=== PATIENT | female | born 1960 | race Caucasian/White ===

== ENCOUNTER → 2017-12-27 | Day surgery (SDC) | payer OTHER ==
--- NOTE | 2017-12-28 14:07 | PATH ---
Cytology Non-Gynecological Report Patient Name: FELICITAS LUKE [facility]. Rec. #: [id number] /Age/Gender: 1960 (Age: 57) / F Account: [id number] Location: Taken: 12/27/2017 Received: 12/27/2017 Reported: 12/28/2017 Physicians: Ines Aragon M.D. Specimen(s) Received THYROID FNA Clinical History Left thyroid nodule 1.1 x 1.07 x 0.86 cm Final Diagnosis THYROID, LEFT, FINE NEEDLE ASPIRATION: SATISFACTORY FOR EVALUATION. BETHESDA CLASS II: BENIGN. CYTOLOGIC FINDINGS ARE CONSISTENT WITH A BENIGN FOLLICULAR NODULE. SMALL FOLLICULAR CELLS, RARE MULTINUCLEATED GIANT CELLS, FEW LYMPHOCYTES AND SCANT COLLOID PRESENT. Electronically Signed Karissa Tiwari M.D. Gross Description Received are eight direct smears, four of which are air-dried and Diff-Quik stained, and four of which are alcohol fixed and Pap stained. Also received is 20 ml of bloody formalin from which one cellblock is prepared.
== END | disposition home or self-care (01) ==
LOC: JRADIR 08:58
PROVIDERS: ATTEND Internal Medicine Endocrinology, Diabetes & Metabolism
PROC: 0G9G3ZX Drainage of Left Thyroid Gland Lobe, Percutaneous Approach, Diagnostic (ICD-10-PCS; principal; 2017-12-27)
DX: E04.1 Nontoxic single thyroid nodule (principal)
CPT/HCPCS: 10022; 60100; 76942-TC; 88173; 88305-TC

== ENCOUNTER 2018-06-15 10:03 | Emergency (ER) | payer OTHER ==
[2018-06-15 10:10] VITALS: BP 152/83; PULSE 81; TEMP 98.3; BMI 25.7
[2018-06-15] MEDS ORDERED: guaiFENesin/CODEINE 10 ML UNIT-DOSE CUPS PO ONE (10:53)
[2018-06-15] MEDS ORDERED: guaiFENesin/CODEINE 5 ML UNIT-DOSE CUPS PO ONE (11:01)
--- NOTE | 2018-06-15 11:25 | PDOC ---
History of Present Illness - General Chief Complaint: Cold Symptoms Stated Complaint: VOMITING/HEADACHE Time Seen by Provider: 06/15/18 10:47 History Source: Patient Exam Limitations: No Limitations - History of Present Illness Initial Comments: 06/15/18 11:31 58-year-old female presents the emergency room with complaints of cough for the past 3 months without fever, chills but complains of bilateral rib soreness causing her difficulty sleeping with extreme coughing sugary nausea without vomiting. Patient denies headache presently but states has had one intermittently at night for the past 2 months. Patient states approximately one month ago had went to her primary care doctor and was given steroids along with 5 days of antibiotics but did not have a chest x-ray or labs done at the time. Patient is currently on lisinopril for hypertension. Patient denies calf pain, shortness of breath, wheezing smoking history, recent travel recent surgery. Timing/Duration: reports: other Severity: reports: mild Possible Cause: Yes: occasional episodes Modifying Factors: improves with: coughing Associated Symptoms: reports: chest pain/soreness (SORENESS), cough, muscle aches. denies: sore throat, wheezing Past History - Travel Traveled outside of the country in the last 30 days: No - Past Medical History Allergies/Adverse Reactions: Allergies Allergy/AdvReac Type Severity Reaction Status Date / Time No Known Allergies Allergy Verified 06/15/18 10:10 Home Medications: Ambulatory Orders Labetalol HCl [Normodyne -] 200 mg PO DAILY 12/16/15 Lisinopril [Prinivil -] 40 mg PO DAILY 12/16/15 Nifedipine [Nifedipine Xl] 60 mg PO DAILY 12/16/15 metFORMIN HCL [Metformin HCl] 500 mg PO BID 12/16/15 COPD: No Diabetes: Yes HTN: Yes Hypercholesterolemia: Yes - Surgical History Abdominal Surgery: Yes (Chris Hardin) - Suicide/Smoking/Psychosocial Hx Smoking History: Never smoked Hx Alcohol Use: No Drug/Substance Use Hx: No Substance Use Type: None Patient Lives Alone: No Lives with/in: spouse/SO Respiratory Specific PMHX - Complaint Specific PMHX Bronchitis: No Review of Systems - Review of Systems Able to Perform ROS?: No Constitutional: No: Symptoms Reported HEENTM: No: Symptoms Reported Respiratory: Yes: Cough. No: Shortness of Breath, Wheezing Cardiac (ROS): Yes: Other (RIB SORENESS) ABD/GI: No: Symptoms Reported : No: Symptoms Reported Musculoskeletal: Yes: Muscle Pain Integumentary: No: Symptoms Reported Neurological: No: Symptoms reported Hematologic/Lymphatic: No: Symptoms Reported *Physical Exam - Vital Signs Last Vital Signs Temp Pulse Resp BP Pulse Ox 98.3 F 81 16 152/83 99 06/15/18 10:06 06/15/18 10:06 06/15/18 10:06 06/15/18 10:06 06/15/18 11:09 - Physical Exam General Appearance: Yes: Nourished, Appropriately Dressed. No: Apparent Distress HEENT: positive: EOMI, SONAM, TMs Normal, Pharynx Normal. negative: Pale Conjunctivae Neck: positive: Normal Thyroid, Supple Respiratory/Chest: positive: Chest Tender (BILATERAL LOWER ribs near axillary region and posteriorly), Lungs Clear, Normal Breath Sounds. negative: Respiratory Distress, Accessory Muscle Use Cardiovascular: positive: Regular Rhythm, Regular Rate. negative: Murmur Gastrointestinal/Abdominal: positive: Soft. negative: Tenderness Integumentary: positive: Normal Color, Warm, Moist. negative: Rash Neurologic: positive: Motor Strength 5/5 (ambulatory) ED Treatment Course - LABORATORY CBC & Chemistry Diagram: 06/15/18 11:36 06/15/18 11:36 - RADIOLOGY Radiology Studies Ordered: Category Date Time Status CHEST PA & LAT [RAD] Stat Radiology 06/15/18 10:48 Ordered - Medications Given in the ED: ED Medications Discontinued Medications Generic Name Dose Route Start Last Admin Trade Name Freq PRN Reason Stop Dose Admin Guaifenesin/Codeine Phosphate 10 ml 06/15/18 10:53 06/15/18 11:00 Robitussin Ac - PO 06/15/18 10:54 10 ml ONCE ONE Administration Medical Decision Making - Medical Decision Making 06/15/18 11:31 Patient with dry hacking cough the past few months worsened in the p.m. hours. Patient states has not taken anything for the above except for antibiotics and prednisone which was prescribed 1 month ago by her primary care physician. Patient exam had no acute findings. Patient concerning for walking pneumonia versus bronchospasm secondary to Norm inhibitors. Patient ordered for labs, chest x-ray along with Robitussin-AC. 06/15/18 12:33 Laboratory Tests 06/15/18 06/15/18 11:36 11:36 WBC 4.0 Hgb 13.1 Hct 38.7 RDW 13.5 Neutrophils % 53.2 Sodium 140 Potassium 4.3 Chloride 104 Carbon Dioxide 27 Anion Gap 9 BUN 17 Creatinine 0.9 Random Glucose 152 H Calcium 9.3 Total Bilirubin 0.3 AST 14 L ALT 27 Chest x-ray shows no acute chest pathology. Patient states feeling better after receiving Robitussin-AC. Discharge home with the same but to use at hs since it contains sugar and may affect BP *DC/Admit/Observation/Transfer Diagnosis at time of Disposition: Cough - Discharge Dispostion Disposition: HOME Condition at time of disposition: Good - Referrals Referrals: Janell Sher MD [Primary Care Provider] - - Patient Instructions Printed Discharge Instructions: DI for Cough -- Adult Additional Instructions: Please take Robitussin as needed for cough trying to reserve it for nighttime only since it may elevate your glucose and blood pressure. Please also notify your primary care doctor of today's visit and discussed the possibility of Norm inhibitor induced cough - Post Discharge Activity
[2018-06-15 11:43] LABS: BASO % 0.8 % (0-2.0); EOS % 2.5 % (0-4.5); HEMATOCRIT 38.7 % (32.4-45.2); HEMOGLOBIN 13.1 GM/dL (10.7-15.3); LYMPH % 36.2 % (8-40); MCH 29.3 pg (25.7-33.7); MCHC 33.7 g/dl (32.0-36.0); MEAN CELL VOLUME 86.8 fl (80-96); MEAN PLT VOLUME 8.5 fl (7.5-11.1); MONO % 7.3 % (3.8-10.2); NEUT % 53.2 % (42.8-82.8); PLATELET COUNT 261 K/MM3 (134-434); RBC 4.46 M/mm3 (3.60-5.2); RDW 13.5 % (11.6-15.6)
[2018-06-15 12:11] LABS: ALBUMIN 4.2 g/dl (3.4-5.0); ALK PHOS 94 U/L (45-117); ANION GAP 9 MMOL/L (8-16); BILIRUBIN,TOTAL 0.3 mg/dL (0.2-1.0); BLOOD UREA NITROGEN 17 mg/dL (7-18); CALCIUM 9.3 mg/dL (8.5-10.1); CHLORIDE 104 mmol/L (98-107); CO2 27 mmol/L (21-32); CREATININE 0.9 mg/dL (0.55-1.02); GLUCOSE,RANDOM 152 mg/dL (74-106); POTASSIUM 4.3 mmol/L (3.5-5.1); SGOT/AST 14 U/L (15-37); SGPT/ALT 27 U/L (12-78); SODIUM 140 mmol/L (136-145); TOT PROT 7.9 g/dl (6.4-8.2)
== END 2018-06-15 12:52 | disposition home or self-care (01) ==
LOC: JER 10:03
DX: R05 Cough (principal); I10 Essential (primary) hypertension; E78.00 Pure hypercholesterolemia, unspecified; E11.9 Type 2 diabetes mellitus without complications; Z79.84 Long term (current) use of oral hypoglycemic drugs
CPT/HCPCS: 36415; 71046-TC-FY; 80053; 85025; 99282-25

== ENCOUNTER 2019-07-13 10:55 | Emergency (ER) | payer OTHER ==
[2019-07-13 11:04] VITALS: BMI 25.0
[2019-07-13 11:56] LABS: EPI CELLS 4.8 /HPF (0-5/HPF); HYALINE CASTS 18 /lpf (0-8); URINE APPEARANCE CLOUDY; URINE BACTERIA 2.7 /hpf (NEGATIVE); URINE BILIRUBIN NEGATIVE (NEGATIVE); URINE COLOR DK YELLOW; URINE GLUCOSE (UA) NEGATIVE (NEGATIVE); URINE KETONE TRACE (NEGATIVE); URINE LEUK ESTERASE NEGATIVE (NEGATIVE); URINE NITRITE NEGATIVE (NEGATIVE); URINE PROTEIN TRACE (NEGATIVE); URINE RBC 33 /hpf (0-4); URINE UROBILINOGEN 0.2 mg/dL (0.2-1.0); URINE WBC 1 /hpf (0-5)
--- NOTE | 2019-07-13 12:21 | PDOC ---
Attending Attestation - Resident Resident Name: BelkysTavares - ED Attending Attestation I have performed the following: I have examined & evaluated the patient, The case was reviewed & discussed with the resident, I agree w/resident's findings & plan, Exceptions are as noted - HPI HPI: 59 yo F history HTN, HL, renal cyst, DM presents with 1 month history of hematuria, intermittent. She c/o suprapubic abd pain with low back pain. Denies f/c, dysuria, foul odor. She states her primary is Dr. Ulloa, but it was recently switched to a new doctor who does not know about the present complaint. - Physicial Exam PE: GENERAL: Awake, alert, and fully oriented, in no acute distress HEAD: No signs of trauma EYES: PERRLA, EOMI, sclera anicteric, conjunctiva clear ENT: Auricles normal inspection, hearing grossly normal, nares patent, oropharynx clear without exudates. Moist mucosa NECK: Normal ROM, supple, no lymphadenopathy, JVD, or masses LUNGS: Breath sounds equal, clear to auscultation bilaterally. No wheezes, and no crackles HEART: Regular rate and rhythm, normal S1 and S2, no murmurs, rubs or gallops ABDOMEN: Soft, +suprapubic tenderness, normoactive bowel sounds. No guarding, no rebound. No masses EXTREMITIES: Normal range of motion, no edema. No clubbing or cyanosis. No cords, erythema, or tenderness NEUROLOGICAL: Cranial nerves II through XII grossly intact. Normal speech, normal gait. Motor and sensation intact SKIN: Warm, dry, normal turgor, no rashes or lesions noted. SPINE: +B/L lumbar paraspinal soft tissue tenderness - Medical Decision Making Pt with hematuria, likely due to renal cyst. However, it also may be due to UTI , nephrolithiasis. Will check UA, labs, spiral CT.
--- NOTE | 2019-07-13 12:24 | PDOC ---
History of Present Illness - General Chief Complaint: Urinary Problem Stated Complaint: BLOOD IN URINE Time Seen by Provider: 07/13/19 11:55 History Source: Patient Exam Limitations: No Limitations - History of Present Illness Initial Comments: 07/13/19 12:18 59 yo female [facility] HTN, HLD, renal cyst (followed by nephro, last seen 6 months ago states normal) DM presents to the ED with 1 month of blood in her urine intermittently and suprapubic abdominal pain with bilateral lower back pain and intermittent diarrhea. Pt states the blood and pain started 1 month ago , never had these symptoms in the past, denies hx of UTI or renal stones. Pain is suprapubic with back Pt denies F/C/N/V, upper abdominal pain, CP, SOB. Past History - Past Medical History Allergies/Adverse Reactions: Allergies Allergy/AdvReac Type Severity Reaction Status Date / Time No Known Allergies Allergy Verified 07/13/19 11:04 Home Medications: Ambulatory Orders Labetalol HCl [Normodyne -] 100 mg PO DAILY 12/16/15 Nifedipine [Nifedipine Xl] 60 mg PO DAILY 12/16/15 metFORMIN HCL [Metformin HCl] 850 mg PO BID 12/16/15 Aspirin [ASA -] 81 mg PO DAILY 07/13/19 Nifedipine [Nifedipine ER] 60 mg PO DAILY 07/13/19 COPD: No Diabetes: Yes HTN: Yes Hypercholesterolemia: Yes - Surgical History Abdominal Surgery: Yes (Tummy Tuck) - Suicide/Smoking/Psychosocial Hx Smoking History: Never smoked Hx Alcohol Use: No Drug/Substance Use Hx: No Substance Use Type: None Review of Systems - Review of Systems Constitutional: No: Chills, Fever HEENTM: No: Blurred Vision, Double Vision Respiratory: No: Shortness of Breath Cardiac (ROS): No: Chest Pain ABD/GI: No: Constipated, Diarrhea, Nausea, Vomiting : Yes: Hematuria, Other (suprapubic ). No: Burning, Dysuria, Flank Pain Musculoskeletal: Yes: Back Pain (lower bilaterally) Integumentary: No: Pallor, Rash Neurological: No: Headache, Numbness, Paresthesia, Weakness *Physical Exam - Vital Signs Last Vital Signs Temp Pulse Resp BP Pulse Ox 98.2 F 67 18 155/75 99 07/13/19 11:02 07/13/19 11:02 07/13/19 11:02 07/13/19 11:02 07/13/19 11:02 - Physical Exam General Appearance: Yes: Nourished, Appropriately Dressed. No: Apparent Distress HEENT: positive: EOMI Neck: positive: Supple. negative: Carotid bruit Respiratory/Chest: positive: Lungs Clear, Normal Breath Sounds. negative: Accessory Muscle Use, Crackles, Rales, Rhonchi, Stridor, Wheezing Cardiovascular: positive: Regular Rhythm, Regular Rate, S1, S2. negative: Edema , JVD, Murmur Vascular Pulses: Dorsalis-Pedis (R): 4+, Doralis-Pedis (L): 4+ Gastrointestinal/Abdominal: positive: Flat, Soft, Tenderness (suprapubic mild). negative: Pulsatile Mass, Protuberent, Distended, Guarding Musculoskeletal: negative: CVA Tenderness Extremity: positive: Normal Capillary Refill, Normal Inspection, Normal Range of Motion Integumentary: positive: Normal Color, Dry, Warm Neurologic: positive: Fully Oriented, Alert, Normal Mood/Affect, Normal Response ED Treatment Course - LABORATORY CBC & Chemistry Diagram: 07/13/19 12:55 07/13/19 12:55 - ADDITIONAL ORDERS Additional order review: Laboratory Results 07/13/19 11:45 Urine Color Dk yellow Urine Appearance Cloudy Urine pH 5.0 Ur Specific [place] 1.028 Urine Protein Trace Urine Glucose (UA) Negative Urine Ketones Trace H Urine Blood 2+ H Urine Nitrite Negative Urine Bilirubin Negative Urine Urobilinogen 0.2 Ur Leukocyte Esterase Negative Urine WBC (Auto) 1 Urine RBC (Auto) 33 Urine Casts (Auto) 18 U Pathogenic Cast Auto None seen U Epithel Cells (Auto) 4.8 Urine Bacteria (Auto) 2.7 Medical Decision Making - Medical Decision Making 07/13/19 16:08 59 yo [place] [facility] [place] HTN, HLD, renal cyst (followed by nephro, last seen 6 months ago states normal) DM presents to the ED with 1 month of blood in her urine intermittently and suprapubic abdominal pain with bilateral lower back pain and intermittent diarrhea. Pt states the blood and pain started 1 month ago , never had these symptoms in the past, denies hx of UTI or renal stones. Pain is suprapubic with back Pt denies F/C/N/V, upper abdominal pain, CP, SOB. vitals wnl blood in UA, will spiral CT to r/o stones Due to hx of renal cyst, will do basic labs to assess kidney function 07/13/19 16:[address] neg for stones Pt is safe for DC with Nephro f/u and PCP f/u *DC/Admit/Observation/Transfer Diagnosis at time of Disposition: Hematuria - Discharge Dispostion Disposition: HOME Condition at time of disposition: Stable Decision to Admit order: No - Referrals Referrals: Papito Bernard MD [Staff Physician] - - Patient Instructions Printed Discharge Instructions: DI for Hematuria Additional Instructions: Please make an appointment and see your Bat Person as soon as possible. See your Primary Doctor within the next 48 hours. return to the ER for new or concerning symptoms including but not limited to: lightheadedness, dizziness, weakness, inability to eat or drink, fevers, difficulty urinating. Thank you Print Language: WELSH - Post Discharge Activity
[2019-07-13 13:01] LABS: BASO % 0.7 % (0-2.0); EOS % 1.7 % (0-4.5); HEMATOCRIT 33.9 % (32.4-45.2); HEMOGLOBIN 11.6 GM/dL (10.7-15.3); LYMPH % 38.5 % (8-40); MCH 29.6 pg (25.7-33.7); MCHC 34.2 g/dl (32.0-36.0); MEAN CELL VOLUME 86.7 fl (80-96); MEAN PLT VOLUME 8.1 fl (7.5-11.1); MONO % 8.7 % (3.8-10.2); NEUT % 50.4 % (42.8-82.8); PLATELET COUNT 263 K/MM3 (134-434); RBC 3.91 M/mm3 (3.60-5.2); RDW 13.7 % (11.6-15.6)
[2019-07-13 13:41] LABS: BILIRUBIN,TOTAL 0.3 mg/dL (0.2-1); BLOOD UREA NITROGEN 19.9 mg/dL (7-18); CALCIUM 9.7 mg/dL (8.5-10.1); CREATININE 0.9 mg/dL (0.55-1.3); POTASSIUM 4.4 mmol/L (3.5-5.1); TOT PROT 7.1 g/dl (6.4-8.2)
[2019-07-13] MEDS ORDERED: LABETALOL HCL 100 MG TABLET (FP) PO ONE (16:33)
[2019-07-13] MEDS ORDERED: NIFEdipine E.R 60 MG TABLET (UD) PO ONE (16:33)
[2019-07-13] MEDS ORDERED: NIFEdipine E.R. 30 MG TABLET (FP) ONE (16:35)
[2019-07-13] MEDS ORDERED: LABETALOL HCL 100 MG TABLET (FP) ONE (16:35)
[2019-07-13 16:40] VITALS: BP 182/85; PULSE 68; TEMP 98.4
== END 2019-07-13 16:42 | disposition home or self-care (01) ==
LOC: JER 10:55
DX: R31.9 Hematuria, unspecified (principal); I10 Essential (primary) hypertension; E78.5 Hyperlipidemia, unspecified; E11.9 Type 2 diabetes mellitus without complications; Z79.84 Long term (current) use of oral hypoglycemic drugs; N28.1 Cyst of kidney, acquired
CPT/HCPCS: 36415; 74176-TC; 80053; 81003; 85025; 87086; 99283-25

== ENCOUNTER 2021-08-10 13:00 | Emergency (ER) | payer OTHER ==
[2021-08-10 13:25] VITALS: BP 148/62; PULSE 65; TEMP 97.9; BMI 22.8
[2021-08-10] MEDS ORDERED: predniSONE 20 MG TABLET (UD) PO ONE (14:47)
[2021-08-10] MEDS: ALBUTEROL SO4 2.5/IPRATROPIUM 0.5 INH SOL 3 ML VIAL.NEB. NEB SCH ×4 (16:00→16:45)
[2021-08-10] MEDS ORDERED: ALBUTEROL SO4 2.5/IPRATROPIUM 0.5 INH SOL 3 ML VIAL.NEB. NEB ONE (16:09)
[2021-08-10] MEDS ORDERED: predniSONE 20 MG TABLET (UD) ONE (16:10)
== END 2021-08-10 18:20 | disposition home or self-care (01) ==
LOC: JER 13:00
PROC: 3E0F7GC Introduction of Other Therapeutic Substance into Respiratory Tract, Via Natural or Artificial Opening (ICD-10-PCS; principal; 2021-08-10)
DX: J45.21 Mild intermittent asthma with (acute) exacerbation (principal)
CPT/HCPCS: 71046-TC-FY; 94640; 99284-25; C9803; U0003; U0005

== ENCOUNTER → 2022-09-27 | Day surgery (SDC) | payer OTHER | END | disposition home or self-care (01) | LOC: JRADUS-SUR 09:38 | PROVIDERS: ATTEND Midwife | PROC: 0H9T3ZX Drainage of Right Breast, Percutaneous Approach, Diagnostic (ICD-10-PCS; principal; 2022-09-27) | DX: C50.911 Malignant neoplasm of unspecified site of right female breast (principal) | CPT/HCPCS: 19083; 77065-TC; 87899; 88305-TC; 88341-TC; 88342-TC; A4648 ==

== ENCOUNTER → 2022-10-26 | Day surgery (SDC) | payer OTHER | END | disposition home or self-care (01) | LOC: FRADUS-SUR 13:15 | PROVIDERS: ATTEND Registered Nurse | PROC: 0HBT3ZX Excision of Right Breast, Percutaneous Approach, Diagnostic (ICD-10-PCS; principal; 2022-10-26) | DX: D24.1 Benign neoplasm of right breast (principal); C50.911 Malignant neoplasm of unspecified site of right female breast; N60.22 Fibroadenosis of left breast | CPT/HCPCS: 19085; 77065-TC; 88305-TC; 88342-TC; A4648; A9579; C1887 ==

== ENCOUNTER → 2022-11-10 | Day surgery (SDC) | payer OTHER | END | disposition home or self-care (01) | LOC: JMAMMOTONE 09:20 | PROVIDERS: ATTEND Surgery Surgical Oncology | PROC: BH3 Imaging, Skin, Subcutaneous Tissue and Breast, Magnetic Resonance Imaging (MRI) (ICD-10-PCS; principal; 2022-11-10) | DX: C50.911 Malignant neoplasm of unspecified site of right female breast (principal) | CPT/HCPCS: 19281; A4648 ==

== ENCOUNTER 2022-11-15 04:23 | Day surgery (SDC) | payer OTHER ==
[2022-11-13 14:41] VITALS: BMI 24.4
[2022-11-15] MEDS ORDERED: BUPIVACAINE HCL/PF 0.5% (5MG/ML) 10 ML VIAL ONE (08:49)
[2022-11-15] MEDS ORDERED: BENZOIN/ALOE VERA/STORAX/TOLU 58 ML BOTTLE ONE (08:49)
[2022-11-15] MEDS ORDERED: ONDANSETRON 4 MG/2 ML VIAL IVPUSH PRN (08:50)
[2022-11-15] MEDS ORDERED: oxyCODONE HCL 5 MG TABLET PO PRN (08:50)
[2022-11-15] MEDS ORDERED: PROMETHAZINE HCL 25 MG/1 ML VIAL IVPUSH PRN (08:50)
[2022-11-15] MEDS ORDERED: LACTATED RINGERS SOLUTION 1,000 ML IV SCH (09:00)
[2022-11-15] MEDS ORDERED: MIDAZOLAM HCL 2 MG/2 ML SINGLE DOSE VIAL ONE (09:09)
[2022-11-15] MEDS ORDERED: SODIUM CHLORIDE 0.9% P/F 10 ML VIAL IJ ONE (09:09)
[2022-11-15] MEDS ORDERED: GLYCOPYRROLATE 0.2 MG/1 ML VIAL ONE (09:09)
[2022-11-15] MEDS ORDERED: LIDOCAINE HCL/PF 2% SDV 5ML VIAL ONE (09:09)
[2022-11-15] MEDS ORDERED: ceFAZolin SODIUM 1 GM VIAL ONE (09:09)
[2022-11-15] MEDS ORDERED: PROPOFOL 20 ML ONE (09:09)
[2022-11-15] MEDS ORDERED: ceFAZolin SODIUM 1 GM VIAL IVPB ONE (09:20)
[2022-11-15] MEDS ORDERED: ONDANSETRON 4 MG/2 ML VIAL ONE (09:25)
[2022-11-15] MEDS ORDERED: KETOROLAC TROMETHAMINE 30 MG/1 ML VIAL ONE (09:25)
[2022-11-15] MEDS ORDERED: DEXAMETHASONE SOD PHOSPHATE 4 MG/1 ML VIAL ONE (09:25)
[2022-11-15] MEDS ORDERED: BUPIVACAINE HCL/PF 0.5% (5 MG/ML) 30 ML VIAL IJ ONE ×2 (09:41→10:30)
[2022-11-15 12:19] VITALS: TEMP 97.2
[2022-11-15 13:15] VITALS: BP 156/73; PULSE 78; RESP 18
== END 2022-11-15 13:05 | disposition home or self-care (01) ==
LOC: JASU-SURG 04:23
PROVIDERS: ATTEND Surgery Surgical Oncology
PROC: C71L1ZZ Planar Nuclear Medicine Imaging of Upper Chest Lymphatics using Technetium 99m (Tc-99m) (ICD-10-PCS; 2022-11-15)
PROC: 0HBT0ZZ Excision of Right Breast, Open Approach (ICD-10-PCS; principal; 2022-11-15 09:00)
PROC: 07B50ZX Excision of Right Axillary Lymphatic, Open Approach, Diagnostic (ICD-10-PCS; 2022-11-15 09:00)
DX: C50.911 Malignant neoplasm of unspecified site of right female breast (principal)
CPT/HCPCS: 76098-TC-FY; 78195-TC; 82962; 88307-TC; 94760; A9541

== ENCOUNTER 2023-01-22 10:31 | Day surgery (SDC) | payer OTHER ==
[2023-01-22 09:48] LABS: HEMATOCRIT 36.1 % (32.4-45.2); HEMOGLOBIN 12.5 GM/dL (10.7-15.3); MCH 29.2 pg (25.7-33.7); MCHC 34.6 g/dl (32.0-36.0); MEAN CELL VOLUME 84.3 fl (80-96); MEAN PLT VOLUME 8.8 fl (7.5-11.1); PLATELET COUNT 272 10^3/uL (134-434); RBC 4.28 M/mm3 (3.60-5.2); RDW 14.2 % (11.6-15.6); WHITE BLOOD COUNT 9.2 K/mm3 (4.0-10.0)
[2023-01-22 10:05] LABS: ALBUMIN 4.2 g/dl (3.4-5.0); BLOOD UREA NITROGEN 28.8 mg/dL (7-18); CALCIUM 9.8 mg/dL (8.5-10.1)
[2023-01-22 10:08] LABS: BILIRUBIN,DIRECT 0.1 mg/dL (0.0-0.2)
[2023-01-22 10:09] LABS: CREATININE 0.9 mg/dL (0.55-1.3)
[2023-01-22 10:10] LABS: BILIRUBIN,TOTAL 0.3 mg/dL (0.2-1); TOT PROT 7.9 g/dl (6.4-8.2)
[~2023-01-22 10:31] MED LIST: DEXAMETHASONE SODIUM PHOSPHATE 10 MG in SODIUM CHLORIDE 50 ML IVPB ONE; DOCETAXEL 132 MG in SODIUM CHLORIDE 250 ML IV ONE; PALONOSETRON HCL 0.25 MG/5 ML VIAL IVPUSH ONE
[2023-01-22 10:51] LABS: ANISOCYTOSIS 0; HELMET CELLS 0; HOWELL-JOLLY BODIES 0; MACROCYTOSIS 0; OVALOCYTE 0; ROULEAU 0; SICKELED CELLS 0; TARGET CELLS 0; TEAR DROP CELLS 0; TOXIC GRANULATION 0
[2023-01-22] MEDS ORDERED: SODIUM CHLORIDE IVPB ONE (11:30)
[2023-01-22] MEDS ORDERED: CYCLOPHOSPHAMIDE IVPB ONE (11:30)
[2023-01-22 16:39] VITALS: BP 151/63; PULSE 67; RESP 20; TEMP 97.6
== END 2023-01-22 16:00 | disposition home or self-care (01) ==
LOC: JRADIR 10:31
PROVIDERS: ATTEND Internal Medicine Hematology & Oncology
PROC: 3E04305 Introduction of Other Antineoplastic into Central Vein, Percutaneous Approach (ICD-10-PCS; principal; 2023-01-22)
PROC: 02HV33Z Insertion of Infusion Device into Superior Vena Cava, Percutaneous Approach (ICD-10-PCS; 2023-01-22)
PROC: B548ZZA Ultrasonography of Superior Vena Cava, Guidance (ICD-10-PCS; 2023-01-22)
DX: Z51.11 Encounter for antineoplastic chemotherapy (principal); C50.919 Malignant neoplasm of unspecified site of unspecified female breast
CPT/HCPCS: 36415; 36569; 80048; 80076; 84703; 85027; J2469; J9070; J9171

== ENCOUNTER 2023-01-23 12:00 | Day surgery (SDC) | payer OTHER ==
[~2023-01-23 12:00] MED LIST changes: +CYCLOPHOSPHAMIDE IVPB ONE; +PEGFILGRASTIM-CBQV (UDENYCA) 6 MG/0.6 ML SYRINGE SQ ONE; +SODIUM CHLORIDE IVPB ONE
[2023-01-23 16:11] VITALS: BP 151/69; PULSE 74; RESP 19; TEMP 97.8
== END 2023-01-23 13:20 | disposition home or self-care (01) ==
LOC: JONCCHEMO 12:00
PROVIDERS: ATTEND Internal Medicine Hematology & Oncology
PROC: 3E013GC Introduction of Other Therapeutic Substance into Subcutaneous Tissue, Percutaneous Approach (ICD-10-PCS; principal; 2023-01-23)
DX: C50.911 Malignant neoplasm of unspecified site of right female breast (principal); Z76.89 Persons encountering health services in other specified circumstances
CPT/HCPCS: 96372; Q5111

== ENCOUNTER 2023-01-27 23:10 | Emergency (ER) | payer OTHER ==
[2023-01-27 23:18] VITALS: BMI 24.2
[2023-01-28 02:43] LABS: BASO % 0.5 % (0-2.0); EOS % 1.3 % (0-4.5); HEMATOCRIT 34.4 % (32.4-45.2); LYMPH % 24.5 % (8-40); MCH 29.5 pg (25.7-33.7); MCHC 34.8 g/dl (32.0-36.0); MEAN CELL VOLUME 84.7 fl (80-96); MEAN PLT VOLUME 8.8 fl (7.5-11.1); MONO % 8.1 % (3.8-10.2); NEUT % 65.6 % (42.8-82.8); PLATELET COUNT 185 10^3/uL (134-434); RBC 4.07 M/mm3 (3.60-5.2); RDW 14.3 % (11.6-15.6); WHITE BLOOD COUNT 8.4 K/mm3 (4.0-10.0)
[2023-01-28 02:46] LABS: EPI CELLS 11 /uL (0-25.1); HYALINE CASTS 1 /uL (0-3.1); URINE APPEARANCE CLEAR; URINE BACTERIA 20 /uL (0-1359); URINE BILIRUBIN NEGATIVE (NEGATIVE); URINE COLOR YELLOW; URINE GLUCOSE (UA) NEGATIVE (NEGATIVE); URINE KETONE NEGATIVE (NEGATIVE); URINE LEUK ESTERASE NEGATIVE (NEGATIVE); URINE NITRITE NEGATIVE (NEGATIVE); URINE PROTEIN 1+ (NEGATIVE); URINE RBC 18 /uL (0-23.9); URINE WBC 10 /uL (0-25.8)
[2023-01-28 02:49] LABS: INR 1.14 (0.83-1.09); PROTHROMBIN TIME (PATIENT) 13.2 SEC (9.7-13.0)
[2023-01-28] MEDS ORDERED: LIDOCAINE 5% TOPICAL PATCH TP ONE (03:20)
[2023-01-28] MEDS ORDERED: ACETAMINOPHEN 1000 MG/100 ML BAG IVPB ONE (03:21)
[2023-01-28 03:30] LABS: ALBUMIN 3.9 g/dl (3.4-5.0); BLOOD UREA NITROGEN 15.5 mg/dL (7-18)
[2023-01-28 03:33] LABS: CREATININE 0.8 mg/dL (0.55-1.3)
[2023-01-28 03:35] LABS: BILIRUBIN,TOTAL 0.5 mg/dL (0.2-1); TOT PROT 7.6 g/dl (6.4-8.2)
[2023-01-28] MEDS ORDERED: ACETAMINOPHEN INJECTION 100 ML IVPB ONE (03:41)
[2023-01-28] MEDS ORDERED: LIDOCAINE 5% TOPICAL PATCH ONE ×2 (03:42)
[2023-01-28] MEDS ORDERED: LACTULOSE 20 GM/30 ML UDC (FOR ORAL USE ONLY) PO ONE (03:52)
[2023-01-28 03:54] LABS: ANISOCYTOSIS 2+; MACROCYTOSIS 0; OVALOCYTE 2+; TEAR DROP CELLS 1+
[2023-01-28 03:55] LABS: TOXIC GRANULATION 3+
[2023-01-28] MEDS ORDERED: POLYETHYLENE GLYCOL (HEALTHYLAX) 3350 17 GM PACKET PO SCH (04:00)
[2023-01-28] MEDS ORDERED: POLYETHYLENE GLYCOL (HEALTHYLAX) 3350 17 GM PACKET PO ONE (04:00)
[2023-01-28] MEDS ORDERED: LACTULOSE 20 GM/30 ML UDC (FOR ORAL USE ONLY) ONE (04:57)
[2023-01-28] MEDS ORDERED: PIPERACILLIN/TAZOB 4.5 GM 4.5 GM in DEXTROSE 5%-WATER 100 ML IVPB ONE (07:19)
[2023-01-28] MEDS ORDERED: VANCOMYCIN 1 GM in D5W (PRE-DOCKED) 1,000 MG/250 ML (RESTRICTED TO ID ONLY IVPB ONE (07:19)
[2023-01-28] MEDS ORDERED: PIPERACILLIN/TAZOB 4.5 GM 4.5 GM/100 ML BAG IVPB ONE (07:59)
[2023-01-28] MEDS ORDERED: VANCOMYCIN/WATER FOR INJ (PEG) 1,000 MG/200 ML BAG IVPB ONE (07:59)
[2023-01-28 09:32] VITALS: BP 133/69; PULSE 77; RESP 17; TEMP 97.9
[2023-01-28 11:03] LABS: BASO % 0.8 % (0-2.0); HEMATOCRIT 32.9 % (32.4-45.2); HEMOGLOBIN 11.3 GM/dL (10.7-15.3); MCH 29.2 pg (25.7-33.7); MCHC 34.4 g/dl (32.0-36.0); MEAN CELL VOLUME 84.9 fl (80-96); MEAN PLT VOLUME 8.7 fl (7.5-11.1); MONO % 9.8 % (3.8-10.2); NEUT % 65.4 % (42.8-82.8); PLATELET COUNT 183 10^3/uL (134-434); RBC 3.88 M/mm3 (3.60-5.2); RDW 14.1 % (11.6-15.6)
[2023-01-28 12:07] LABS: ANISOCYTOSIS 0; MACROCYTOSIS 0
[2023-01-28] MEDS ORDERED: LIDOCAINE PATCH REMOVAL MC ONE (16:00)
== END 2023-01-28 14:11 | disposition home or self-care (01) ==
LOC: JER 23:10
PROC: 3E03329 Introduction of Other Anti-infective into Peripheral Vein, Percutaneous Approach (ICD-10-PCS; principal; 2023-01-27)
PROC: 3E033NZ Introduction of Analgesics, Hypnotics, Sedatives into Peripheral Vein, Percutaneous Approach (ICD-10-PCS; 2023-01-27)
PROC: 3E03329 Introduction of Other Anti-infective into Peripheral Vein, Percutaneous Approach (ICD-10-PCS; 2023-01-27)
DX: K59.00 Constipation, unspecified (principal); M54.50 Low back pain, unspecified
CPT/HCPCS: 36415; 71045-TC-FY; 72133-TC; 74176-TC; 80053; 81003; 85025; 85610; 87040; 87086; 96365; 96375; 99285-25

== ENCOUNTER 2023-02-12 09:29 | Day surgery (SDC) | payer OTHER ==
[2023-02-12] MEDS ORDERED: PALONOSETRON HCL 0.25 MG/5 ML VIAL IVPUSH ONE (10:00)
[2023-02-12] MEDS ORDERED: DEXAMETHASONE SODIUM PHOSPHATE 10 MG in SODIUM CHLORIDE 50 ML IVPB ONE (10:00)
[2023-02-12 10:11] LABS: BASO % 0.1 % (0-2.0); HEMATOCRIT 35.5 % (32.4-45.2); HEMOGLOBIN 12.2 GM/dL (10.7-15.3); LYMPH % 10.7 % (8-40); MCH 29.8 pg (25.7-33.7); MCHC 34.5 g/dl (32.0-36.0); MEAN CELL VOLUME 86.3 fl (80-96); MEAN PLT VOLUME 8.4 fl (7.5-11.1); MONO % 2.4 % (3.8-10.2); NEUT % 86.8 % (42.8-82.8); PLATELET COUNT 518 10^3/uL (134-434); RBC 4.11 M/mm3 (3.60-5.2); WHITE BLOOD COUNT 8.5 K/mm3 (4.0-10.0)
[2023-02-12] MEDS ORDERED: DOCETAXEL 132 MG in SODIUM CHLORIDE 250 ML IV ONE (10:30)
[2023-02-12 10:35] LABS: CALCIUM 10.2 mg/dL (8.5-10.1)
[2023-02-12 10:36] LABS: ALBUMIN 4.2 g/dl (3.4-5.0); BLOOD UREA NITROGEN 24.8 mg/dL (7-18)
[2023-02-12 10:39] LABS: BILIRUBIN,DIRECT 0.1 mg/dL (0.0-0.2); CREATININE 1.1 mg/dL (0.55-1.3)
[2023-02-12 10:41] LABS: BILIRUBIN,TOTAL 0.2 mg/dL (0.2-1); TOT PROT 8.1 g/dl (6.4-8.2)
[2023-02-12] MEDS ORDERED: SODIUM CHLORIDE IVPB ONE (11:30)
[2023-02-12] MEDS ORDERED: CYCLOPHOSPHAMIDE IVPB ONE (11:30)
[2023-02-12 17:36] VITALS: BP 137/71; PULSE 80; RESP 20; TEMP 97.8
== END 2023-02-12 16:45 | disposition home or self-care (01) ==
LOC: JONCCHEMO 09:29
PROVIDERS: ATTEND Internal Medicine Hematology & Oncology
PROC: 02HV33Z Insertion of Infusion Device into Superior Vena Cava, Percutaneous Approach (ICD-10-PCS; principal; 2023-02-12)
PROC: B548ZZA Ultrasonography of Superior Vena Cava, Guidance (ICD-10-PCS; 2023-02-12)
PROC: 3E04305 Introduction of Other Antineoplastic into Central Vein, Percutaneous Approach (ICD-10-PCS; 2023-02-12)
DX: Z51.11 Encounter for antineoplastic chemotherapy (principal); C50.919 Malignant neoplasm of unspecified site of unspecified female breast
CPT/HCPCS: 36415; 36569; 80048; 80076; 85025; 96375; 96413; 96417; J2469; J9070; J9171

== ENCOUNTER 2023-02-13 13:40 | Day surgery (SDC) | payer OTHER ==
[~2023-02-13 13:40] MED LIST changes: -CYCLOPHOSPHAMIDE IVPB ONE; -DEXAMETHASONE SODIUM PHOSPHATE 10 MG in SODIUM CHLORIDE 50 ML IVPB ONE; -DOCETAXEL 132 MG in SODIUM CHLORIDE 250 ML IV ONE; -PALONOSETRON HCL 0.25 MG/5 ML VIAL IVPUSH ONE; -SODIUM CHLORIDE IVPB ONE
[2023-02-13 16:44] VITALS: BP 166/86; PULSE 70; RESP 20; TEMP 97.4
== END 2023-02-13 13:45 | disposition home or self-care (01) ==
LOC: JONCCHEMO 13:40
PROVIDERS: ATTEND Internal Medicine Hematology & Oncology
PROC: 3E013GC Introduction of Other Therapeutic Substance into Subcutaneous Tissue, Percutaneous Approach (ICD-10-PCS; principal; 2023-02-13)
DX: C50.911 Malignant neoplasm of unspecified site of right female breast (principal); Z76.89 Persons encountering health services in other specified circumstances
CPT/HCPCS: 96372; Q5111

== ENCOUNTER 2023-03-05 09:44 | Day surgery (SDC) | payer OTHER ==
[2023-03-05] MEDS ORDERED: DEXAMETHASONE SODIUM PHOSPHATE 10 MG in SODIUM CHLORIDE 50 ML IVPB ONE (10:00)
[2023-03-05] MEDS ORDERED: PALONOSETRON HCL 0.25 MG/5 ML VIAL IVPUSH ONE (10:00)
[2023-03-05] MEDS ORDERED: DOCETAXEL 132 MG in SODIUM CHLORIDE 250 ML IV ONE (10:30)
[2023-03-05 10:35] LABS: BASO % 0.2 % (0-2.0); HEMATOCRIT 32.2 % (32.4-45.2); HEMOGLOBIN 11.2 GM/dL (10.7-15.3); LYMPH % 13.5 % (8-40); MCH 30.5 pg (25.7-33.7); MCHC 34.8 g/dl (32.0-36.0); MEAN CELL VOLUME 87.6 fl (80-96); MEAN PLT VOLUME 8.7 fl (7.5-11.1); MONO % 5.7 % (3.8-10.2); NEUT % 80.6 % (42.8-82.8); PLATELET COUNT 376 10^3/uL (134-434); RBC 3.68 M/mm3 (3.60-5.2); RDW 16.5 % (11.6-15.6); WHITE BLOOD COUNT 7.9 K/mm3 (4.0-10.0)
[2023-03-05 10:53] LABS: POTASSIUM 4.5 mmol/L (3.5-5.1)
[2023-03-05 10:55] LABS: ALBUMIN 3.8 g/dl (3.4-5.0); BLOOD UREA NITROGEN 24.6 mg/dL (7-18); CALCIUM 9.1 mg/dL (8.5-10.1)
[2023-03-05 10:58] LABS: BILIRUBIN,DIRECT 0.1 mg/dL (0.0-0.2); CREATININE 1.2 mg/dL (0.55-1.3)
[2023-03-05 11:00] LABS: BILIRUBIN,TOTAL 0.3 mg/dL (0.2-1); TOT PROT 7.4 g/dl (6.4-8.2)
[2023-03-05] MEDS ORDERED: CYCLOPHOSPHAMIDE IVPB ONE (11:30)
[2023-03-05] MEDS ORDERED: SODIUM CHLORIDE IVPB ONE (11:30)
[2023-03-05 15:59] VITALS: BP 140/69; PULSE 71; RESP 20; TEMP 97.9
== END 2023-03-05 14:45 | disposition home or self-care (01) ==
LOC: JONCCHEMO 09:44 → J7W 09:45 → JONCCHEMO 14:45
PROVIDERS: ATTEND Internal Medicine Hematology & Oncology
DX: Z51.11 Encounter for antineoplastic chemotherapy (principal); C50.911 Malignant neoplasm of unspecified site of right female breast
CPT/HCPCS: 36415; 36573; 77001-TC-FY; 80048; 80076; 85025; 96375; 96413; 96417; C1751; J2469; J9070; J9171

== ENCOUNTER → 2023-03-05 | Day surgery (SDC) | payer OTHER | END | disposition home or self-care (01) | LOC: J7W 09:46 → JRADIR 09:46 | PROVIDERS: ATTEND Internal Medicine Hematology & Oncology | PROC: 02HV33Z Insertion of Infusion Device into Superior Vena Cava, Percutaneous Approach (ICD-10-PCS; principal; 2023-03-05) | DX: C50.911 Malignant neoplasm of unspecified site of right female breast (principal) | CPT/HCPCS: 36569; 77001-TC-FY; C1751 ==

== ENCOUNTER 2023-03-06 13:15 | Day surgery (SDC) | payer OTHER ==
[2023-03-06 18:13] VITALS: BP 140/72; PULSE 71; RESP 20; TEMP 97.2
== END 2023-03-06 13:40 | disposition home or self-care (01) ==
LOC: JONCCHEMO 13:15
PROVIDERS: ATTEND Internal Medicine Hematology & Oncology
PROC: 3E013GC Introduction of Other Therapeutic Substance into Subcutaneous Tissue, Percutaneous Approach (ICD-10-PCS; principal; 2023-03-06)
DX: Z76.89 Persons encountering health services in other specified circumstances (principal); C50.911 Malignant neoplasm of unspecified site of right female breast
CPT/HCPCS: 96372; Q5111

== ENCOUNTER 2023-03-26 08:57 | Day surgery (SDC) | payer OTHER ==
[2023-03-26] MEDS ORDERED: DEXAMETHASONE SODIUM PHOSPHATE 10 MG in SODIUM CHLORIDE 50 ML IVPB ONE (10:00)
[2023-03-26] MEDS ORDERED: PALONOSETRON HCL 0.25 MG/5 ML VIAL IVPUSH ONE (10:00)
[2023-03-26] MEDS ORDERED: DOCETAXEL 132 MG in SODIUM CHLORIDE 250 ML IV ONE (10:30)
[2023-03-26] MEDS ORDERED: CYCLOPHOSPHAMIDE IVPB ONE (11:30)
[2023-03-26] MEDS ORDERED: SODIUM CHLORIDE IVPB ONE (11:30)
[2023-03-26 18:26] VITALS: BP 140/92; PULSE 68; RESP 18; TEMP 98.4
== END 2023-03-26 15:20 | disposition home or self-care (01) ==
LOC: JONCCHEMO 08:57 → J7W 08:58 → JONCCHEMO 15:20
PROVIDERS: ATTEND Internal Medicine Hematology & Oncology
DX: Z51.11 Encounter for antineoplastic chemotherapy (principal); C50.911 Malignant neoplasm of unspecified site of right female breast
CPT/HCPCS: 96367; 96375; 96413; 96417; J2469; J9070

== ENCOUNTER → 2023-03-26 | Day surgery (SDC) | payer OTHER | END | disposition home or self-care (01) | LOC: JRADIR 09:29 | PROVIDERS: ATTEND Internal Medicine Hematology & Oncology | PROC: 02HV33Z Insertion of Infusion Device into Superior Vena Cava, Percutaneous Approach (ICD-10-PCS; principal; 2023-03-26) | PROC: B548ZZA Ultrasonography of Superior Vena Cava, Guidance (ICD-10-PCS; 2023-03-26) | DX: Z51.11 Encounter for antineoplastic chemotherapy (principal); C50.911 Malignant neoplasm of unspecified site of right female breast; C50.919 Malignant neoplasm of unspecified site of unspecified female breast | CPT/HCPCS: 36569; 36573; 77001-TC-FY; 96367; 96375; 96413; 96417; C1751; J2469; J9070 ==

== ENCOUNTER 2023-03-27 13:35 | Day surgery (SDC) | payer OTHER ==
[2023-03-26 10:23] LABS: BASO % 0.2 % (0-2.0); HEMATOCRIT 35.6 % (32.4-45.2); HEMOGLOBIN 11.7 GM/dL (10.7-15.3); LYMPH % 12.4 % (8-40); MCH 29.9 pg (25.7-33.7); MEAN CELL VOLUME 90.8 fl (80-96); MEAN PLT VOLUME 8.5 fl (7.5-11.1); MONO % 3.5 % (3.8-10.2); NEUT % 83.9 % (42.8-82.8); PLATELET COUNT 348 10^3/uL (134-434); RBC 3.92 M/mm3 (3.60-5.2); RDW 16.6 % (11.6-15.6)
[2023-03-26 10:46] LABS: WHITE BLOOD COUNT 7.5 K/mm3 (4.0-10.0)
[2023-03-26 10:56] LABS: POTASSIUM 4.5 mmol/L (3.5-5.1)
[2023-03-26 10:58] LABS: BLOOD UREA NITROGEN 26.6 mg/dL (7-18); CALCIUM 9.9 mg/dL (8.5-10.1)
[2023-03-26 10:59] LABS: ALBUMIN 3.9 g/dl (3.4-5.0)
[2023-03-26 11:01] LABS: CREATININE 1.1 mg/dL (0.55-1.3)
[2023-03-26 11:02] LABS: BILIRUBIN,DIRECT 0.1 mg/dL (0.0-0.2)
[2023-03-26 11:03] LABS: BILIRUBIN,TOTAL 0.2 mg/dL (0.2-1); TOT PROT 7.3 g/dl (6.4-8.2)
[2023-03-27 14:50] VITALS: BP 150/83; PULSE 74; RESP 20; TEMP 98.2
== END 2023-03-27 14:45 | disposition home or self-care (01) ==
LOC: JONCCHEMO 13:35 → J7W 13:37 → JONCCHEMO 14:45
PROVIDERS: ATTEND Internal Medicine Hematology & Oncology
PROC: 3E013GC Introduction of Other Therapeutic Substance into Subcutaneous Tissue, Percutaneous Approach (ICD-10-PCS; principal; 2023-03-27)
DX: C50.911 Malignant neoplasm of unspecified site of right female breast (principal); Z76.89 Persons encountering health services in other specified circumstances
CPT/HCPCS: 36415; 80048; 80076; 85025; 96372; Q5111

== ENCOUNTER 2023-10-11 04:41 | Day surgery (SDC) | payer OTHER ==
[2023-10-08 15:54] VITALS: BMI 24.6
[2023-10-11 09:40] VITALS: TEMP 98.2
[2023-10-11 10:11] VITALS: BP 125/81; PULSE 72; RESP 18
== END 2023-10-11 10:15 | disposition home or self-care (01) ==
LOC: JASU-ENDO 04:41
PROVIDERS: ATTEND Internal Medicine Gastroenterology
PROC: 0DBL8ZX Excision of Transverse Colon, Via Natural or Artificial Opening Endoscopic, Diagnostic (ICD-10-PCS; principal; 2023-10-11 08:30)
DX: Z12.11 Encounter for screening for malignant neoplasm of colon (principal); D12.3 Benign neoplasm of transverse colon; K57.30 Diverticulosis of large intestine without perforation or abscess without bleeding; Z86.010 Personal history of colon polyps; Z80.0 Family history of malignant neoplasm of digestive organs
CPT/HCPCS: 82962; 88305-TC

== ENCOUNTER → 2025-02-12 | Day surgery (SDC) | payer OTHER | END | disposition home or self-care (01) | LOC: FRADUS-SUR 07:58 | PROVIDERS: ATTEND Registered Nurse | PROC: 0HBT3ZX Excision of Right Breast, Percutaneous Approach, Diagnostic (ICD-10-PCS; principal; 2025-02-12) | DX: R92.311 Mammographic fatty tissue density, right breast (principal); R92.1 Mammographic calcification found on diagnostic imaging of breast | CPT/HCPCS: 19085; 77065-TC; 88305-TC; A4648 ==